=== PATIENT | male | born 1945 ===

== ENCOUNTER 2021-08-12 06:36 | Outpatient (CLI) | payer OTHER | END 2021-08-12 06:37 | disposition home or self-care (01) | LOC: LAB 06:36 | PROVIDERS: ATTEND Urology | DX: C61 Malignant neoplasm of prostate (principal) ==

== ENCOUNTER 2022-09-29 06:19 | Outpatient (CLI) | payer OTHER | END 2022-09-29 06:20 | disposition home or self-care (01) | LOC: LAB 06:19 | PROVIDERS: ATTEND Urology | DX: C61 Malignant neoplasm of prostate (principal) ==